=== PATIENT | male | born 1980 | race Hispanic/Latino ===

== ENCOUNTER 2018-07-06 21:31 | Emergency (ER) | payer SELFPAY ==
--- NOTE | 2018-07-06 22:14 | EDPHYS ---
Physician Documentation [facility] Name: Sharif Davila Jr Age: 38 yrs Sex: Male : 1980 Arrival Date: 07/06/2018 Time: 21:32 Bed 23 Private MD: ED Physician Maciel Edwards HPI: 07/06 22:38 This 38 yrs old Male presents to ER via Ambulatory with complaints of Back snw Pain. 22:38 The patient presents with pain that is acute, with no known mechanism of injury, and snw decreased range of motion, and spasm, stiffness, tightness. The symptoms are located in the low back. Onset: The symptoms/episode began/occurred suddenly, 3 day(s) ago, and became worse and became persistent. Location: bilateral buttocks. Associated signs and symptoms: The patient has no apparent associated signs or symptoms. The problem was sustained from unknown cause. Modifying factors: The patient symptoms are alleviated by remaining still, the patient symptoms are aggravated by sitting, defecating, rising. Severity of symptoms: At their worst the symptoms were moderate, severe. The patient has not experienced similar symptoms in the past. The patient has not recently seen a physician. Historical: - Allergies: 21:42 No Known Allergies; ea - Home Meds: 21:42 None [Active]; ea - PMHx: 21:42 None; ea - PSHx: 21:42 Appendectomy; ea - Immunization history:: Adult Immunizations up to date. - Social history:: Smoking status: Patient uses tobacco products, smokes one-half pack cigarettes per day. - Ebola Screening: : No symptoms or risks identified at this time. ROS: 22:37 Constitutional: Negative for fever, chills, and weight loss, Eyes: Negative for injury, snw pain, redness, and discharge, ENT: Negative for injury, pain, and discharge, Neck: Negative for injury, pain, and swelling, Cardiovascular: Negative for chest pain, palpitations, and edema, Respiratory: Negative for shortness of breath, cough, wheezing, and pleuritic chest pain, Abdomen/GI: Negative for abdominal pain, nausea, vomiting, diarrhea, and constipation, : Negative for injury, bleeding, discharge, and swelling, MS/Extremity: Negative for injury and deformity, Skin: Negative for injury, rash, and discoloration, Neuro: Negative for headache, weakness, numbness, tingling, and seizure. 22:37 Back: Positive for decreased range of motion, pain at rest, pain with movement, radiated pain, of the low back area, radiated pain down bilateral buttock, denies numbness, voiding without diff. Exam: 22:37 Constitutional: This is a well developed, well nourished patient who is awake, alert, snw and in no acute distress. Head/Face: Normocephalic, atraumatic. Eyes: Pupils equal round and reactive to light, extra-ocular motions intact. Lids and lashes normal. Conjunctiva and sclera are non-icteric and not injected. Cornea within normal limits. Periorbital areas with no swelling, redness, or edema. ENT: Nares patent. No nasal discharge, no septal abnormalities noted. Tympanic membranes are normal and external auditory canals are clear. Oropharynx with no redness, swelling, or masses, exudates, or evidence of obstruction, uvula midline. Mucous membranes moist. Neck: Trachea midline, no thyromegaly or masses palpated, and no cervical lymphadenopathy. Supple, full range of motion without nuchal rigidity, or vertebral point tenderness. No Meningismus. Chest/axilla: Normal chest wall appearance and motion. Nontender with no deformity. No lesions are appreciated. Cardiovascular: Regular rate and rhythm with a normal S1 and S2. No gallops, murmurs, or rubs. Normal PMI, no JVD. No pulse deficits. Respiratory: Lungs have equal breath sounds bilaterally, clear to auscultation and percussion. No rales, rhonchi or wheezes noted. No increased work of breathing, no retractions or nasal flaring. Abdomen/GI: Soft, non-tender, with normal bowel sounds. No distension or tympany. No guarding or rebound. No evidence of tenderness throughout. Skin: Warm, dry with normal turgor. Normal color with no rashes, no lesions, and no evidence of cellulitis. MS/ Extremity: Pulses equal, no cyanosis. Neurovascular intact. Full, normal range of motion. Neuro: Awake and alert, GCS 15, oriented to person, place, time, and situation. Cranial nerves II-XII grossly intact. Motor strength 5/5 in all extremities. Sensory grossly intact. Cerebellar exam normal. Normal gait. 22:37 Back: pain, that is moderate, of the lumbar area, ROM is painful, with flexion, normal spinal alignment noted, muscle spasm, is appreciated in the low back area. Vital Signs: 21:38 BP 142 / 87; Pulse 87; Resp 16; Temp 98.4; Pulse Ox 100% ; Weight 64.41 kg; Height 5 ea ft. 9 in. (175.26 cm); Pain 8/10; 22:39 BP 121 / 76; Pulse 68; Resp 18; Pulse Ox 98% on R/A; tl3 21:38 Body Mass Index 20.97 (64.41 kg, 175.26 cm) ea MDM: 22:12 Patient medically screened. snw 22:40 Data reviewed: vital signs, nurses notes. Data interpreted: Pulse oximetry: on room air snw is 98 %. Interpretation: normal. Counseling: I had a detailed discussion with the patient and/or guardian regarding: the historical points, exam findings, and any diagnostic results supporting the discharge/admit diagnosis, lab results, the need for outpatient follow up, to return to the emergency department if symptoms worsen or persist or if there are any questions or concerns that arise at home. Special discussion: Based on the history and exam findings, there is no indication for further emergent testing or inpatient evaluation. I discussed with the patient/guardian the need to see the primary care provider for further evaluation of the symptoms. 07/06 22:31 Order name: Urine Dipstick--Ancillary (enter results) 2 07/06 22:01 Order name: Urine Dipstick-Ancillary (obtain specimen); Complete Time: 22:28 snw Administered Medications: 22:28 Drug: Decadron 8 mg Route: PO; mg2 22:28 Follow up: Response: No adverse reaction; Medication administered at discharge. mg2 22:28 Drug: [place] 5 mg-325 mg 1 tabs Route: PO; mg2 22:28 Follow up: Response: No adverse reaction; Medication administered at discharge. mg2 22:28 Drug: Valium 2 mg Route: PO; mg2 22:28 Follow up: Response: No adverse reaction; Medication administered at discharge. mg2 Disposition: 22:47 Co-signature as Attending Physician, Maciel Edwards MD. ma2 Disposition: 07/06/18 22:13 Discharged to Home. Impression: Low back pain, Radiculopathy, lumbosacral region. - Condition is Stable. - Discharge Instructions: Back Pain, Adult, Lumbosacral Radiculopathy, Musculoskeletal Pain, Back Injury Prevention, [id number]-ru-Femt, Back Exercises, Jypj-zp-Opyk, Cryotherapy, Rehydration, Adult, Heat Therapy. - Prescriptions for Diclofenac Sodium 75 mg Oral Tablet Sustained Release - take 1 tablet by ORAL route 2 times per day; 30 tablet. orphenadrine citrate 100 mg Oral Tablet Sustained Release - take 1 tablet by ORAL route 2 times per day As needed; 20 tablet. - Work release form, Medication Reconciliation Form, Thank You Letter, Antibiotic Education, Prescription Opioid Use form. - Follow up: Private Physician; When: 2 - 3 days; Reason: Recheck today's complaints, Continuance of care, Re-evaluation by your physician. Follow up: Emergency Department; When: As needed; Reason: Worsening of condition. Signatures: Dispatcher [employer] EDMS Jessi Lino, HERMELINDA-C DRAFTING TECHNICIAN-Csnw Rhiannon Salazar, RN RN ea Maciel Edwards MD MD ma2 Nicole Newton RN RN tl3 Bubba Rodriguez RN RN mg2 Corrections: (The following items were deleted from the chart) 22:40 22:13 07/06/2018 22:13 Discharged to Home. Impression: Low back pain; Radiculopathy, tl3 lumbosacral region. Condition is Stable. Forms are Medication Reconciliation Form, Thank You Letter, Antibiotic Education, Prescription Opioid Use. Follow up: Private Physician; When: 2 - 3 days; Reason: Recheck today's complaints, Continuance of care, Re-evaluation by your physician. Follow up: Emergency Department; When: As needed; Reason: Worsening of condition. snw
--- NOTE | 2018-07-06 22:14 | ER ---
Nurse's Notes [facility] Name: Sharif Davila Jr Age: 38 yrs Sex: Male : 1980 Arrival Date: 07/06/2018 Time: 21:32 Bed 23 Private MD: Diagnosis: Low back pain;Radiculopathy, lumbosacral region Presentation: 07/06 21:39 Presenting complaint: Patient states: Patient reports lower back pain that started ea Friday, states he might have pulled some muscles but nothing has helped. Transition of care: patient was not received from another setting of care. Onset of symptoms. Risk Assessment: Do you want to hurt yourself or someone else? Patient reports no desire to harm self or others. Initial Sepsis Screen: Does the patient meet any 2 criteria? No. Patient's initial sepsis screen is negative. Does the patient have a suspected source of infection? No. Patient's initial sepsis screen is negative. Care prior to arrival: None. 21:39 Method Of Arrival: Ambulatory ea 21:39 Acuity: LIZ 4 ea Historical: - Allergies: 21:42 No Known Allergies; ea - Home Meds: 21:42 None [Active]; ea - PMHx: 21:42 None; ea - PSHx: 21:42 Appendectomy; ea - Immunization history:: Adult Immunizations up to date. - Social history:: Smoking status: Patient uses tobacco products, smokes one-half pack cigarettes per day. - Ebola Screening: : No symptoms or risks identified at this time. Screenin:15 Abuse screen: Denies threats or abuse. Denies injuries from another. Nutritional mg2 screening: No deficits noted. Tuberculosis screening: No symptoms or risk factors identified. Fall Risk Gait- Weak (10 pts.). Assessment: 22:15 General: Appears in no apparent distress. uncomfortable, Behavior is calm, cooperative. mg2 Pain: Complains of pain in back Pain does not radiate. Pain currently is 8 out of 10 on a pain scale. Quality of pain is described as aching, Pain began gradually, Is intermittent. Neuro: Level of Consciousness is awake, alert, obeys commands, Oriented to person, place, time, situation. Cardiovascular: Capillary refill < 3 seconds Patient's skin is warm and dry. Respiratory: Airway is patent Respiratory effort is even, unlabored, Respiratory pattern is regular, symmetrical. GI: No signs and/or symptoms were reported involving the gastrointestinal system. : No signs and/or symptoms were reported regarding the genitourinary system. EENT: No signs and/or symptoms were reported regarding the EENT system. Derm: Skin is intact, is healthy with good turgor, Skin is pink, warm \T\ dry. normal. Musculoskeletal: Reports pain in back. 22:18 Reassessment: patient is for discharge after giving all the medications. mg2 Vital Signs: 21:38 BP 142 / 87; Pulse 87; Resp 16; Temp 98.4; Pulse Ox 100% ; Weight 64.41 kg; Height 5 ea ft. 9 in. (175.26 cm); Pain 8/10; 22:39 BP 121 / 76; Pulse 68; Resp 18; Pulse Ox 98% on R/A; tl3 21:38 Body Mass Index 20.97 (64.41 kg, 175.26 cm) ea ED Course: 21:32 Patient arrived in ED. am2 21:36 Jessi Lino FNP-C is PHCP. snw 21:36 Maciel Edwards MD is Attending Physician. snw 21:41 Triage completed. ea 22:12 Bubba Rodriguez, TY is Primary Nurse. mg2 22:14 Patient has correct armband on for positive identification. mg2 22:15 No provider procedures requiring assistance completed. mg2 22:17 Door closed. mg2 22:17 Arm band placed on. mg2 22:39 Patient did not have IV access during this emergency room visit. tl3 Administered Medications: 22:28 Drug: Decadron 8 mg Route: PO; mg2 22:28 Follow up: Response: No adverse reaction; Medication administered at discharge. mg2 22:28 Drug: [place] 5 mg-325 mg 1 tabs Route: PO; mg2 22:28 Follow up: Response: No adverse reaction; Medication administered at discharge. mg2 22:28 Drug: Valium 2 mg Route: PO; mg2 22:28 Follow up: Response: No adverse reaction; Medication administered at discharge. mg2 Outcome: 22:13 Discharge ordered by . snw 22:39 Discharged to home via wheelchair. tl3 22:39 Condition: stable 22:39 Discharge instructions given to patient, Instructed on discharge instructions, follow up and referral plans. medication usage, Demonstrated understanding of instructions, follow-up care, medications, Prescriptions given X 2. 22:40 Patient left the ED. tl3 Signatures: Jessi Lino, GUM SCORING MACHINE OPERATOR-C GUM SCORING MACHINE OPERATOR-Csnw Angle Lam Elena, RN RN Nicole Taylor RN RN tl3 Bubba Rodriguez RN RN mg2
[2018-07-06] MEDS ORDERED: HYDROCODONE/APAP 5/325 MG TAB ONE (22:33)
[2018-07-06] MEDS ORDERED: DIAZEPAM 2 MG TABLET ONE (22:33)
[2018-07-06] MEDS ORDERED: DEXAMETHASONE 4 MG TAB ONE (22:33)
[2018-07-06 23:06] LABS: Urine Blood TRACE (NEG); Urine Glucose NEGATIVE (NEG); Urine Protein NEGATIVE (NEG); Urine Specific Gravity 1.015 (1.005-1.030); Urine pH 7.5 (5.0-7.0)
== END 2018-07-06 22:40 | disposition home or self-care (01) ==
LOC: ER 21:31
DX: M54.17 Radiculopathy, lumbosacral region (principal); F17.210 Nicotine dependence, cigarettes, uncomplicated
CPT/HCPCS: 81003; 99283

== ENCOUNTER 2018-07-14 14:36 | Emergency (ER) | payer SELFPAY ==
[2018-07-14] MEDS ORDERED: LIDOCAINE 1% MPF 5 ML VIAL ONE (15:29)
[2018-07-14] MEDS ORDERED: NA CHLORIDE 0.9% 100 ML IV ONE ×3 (16:10→16:31)
[2018-07-14] MEDS ORDERED: CEFAZOLIN SODIUM 1 GM/VIAL ONE ×2 (16:16→16:30)
[2018-07-14] MEDS ORDERED: TETANUS & DIPHTHERIA TOX,ADULT 0.5 ML VIAL ONE (16:18)
--- NOTE | 2018-07-14 16:30 | RAD REPORT ---
EXAM DESCRIPTION: RAD -Hand Left 3 View - 07/14/2018 3:44 pm CLINICAL HISTORY: Left hand pain status post injury FINDINGS: Nondisplaced fracture involves the mid to distal aspect of the first proximal phalanx. The fracture line has a horizontal as well as a vertical component. No dislocation is seen
[2018-07-14] MEDS ORDERED: NA CHLORIDE 0.9% 1,000 ML ONE (16:31)
--- NOTE | 2018-07-14 16:39 | ER ---
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 Transition of care: patient was not received from another setting of care. Onset of symptoms was July 14, 2018 at 14:20. Risk Assessment: Do you want to hurt yourself or someone else? Patient reports no desire to harm self or others. Initial Sepsis Screen: Does the patient meet any 2 criteria? No. Patient's initial sepsis screen is negative. Does the patient have a suspected source of infection? No. Patient's initial sepsis screen is negative. Care prior to arrival: None. 14:52 Method Of Arrival: Ambulatory 14:52 Acuity: LIZ 4 Triage Assessment: 14:53 General: Appears in no apparent distress. comfortable, Behavior is calm, cooperative, ch appropriate for age. Pain: Complains of pain in dorsal aspect of distal phalanx of left thumb and dorsal aspect of proximal phalanx of left thumb. Musculoskeletal: Circulation, motion, and sensation intact. Capillary refill < 3 seconds, in bilateral fingers. toes. Injury Description: Crush injury sustained to left hand is pt has laceration. Historical: - Allergies: 14:53 No Known Allergies; - Home Meds: 14:53 back pain medication given 06/2018 [Active]; - PMHx: 14:53 None; - PSHx: 14:53 fingers; Appendectomy; - Immunization history:: Adult Immunizations up to date, Last tetanus immunization: up to date. - Social history:: Smoking status: Patient uses tobacco products, smokes one-half pack cigarettes per day, Patient uses alcohol, weekly. Patient/guardian denies using street drugs. - Ebola Screening: : Patient negative for fever greater than or equal to 101.5 degrees Fahrenheit, and additional compatible Ebola Virus Disease symptoms Patient denies exposure to infectious person Patient denies travel to an Ebola-affected area in the 21 days before illness onset No symptoms or risks identified at this time. Screenin:34 Abuse screen: Denies threats or abuse. Nutritional screening: No deficits noted. ls4 Tuberculosis screening: No symptoms or risk factors identified. Fall Risk None identified. Assessment: 16:33 General: Appears in no apparent distress. Neuro: No deficits noted. Cardiovascular: No ls4 deficits noted. Respiratory: No deficits noted. Musculoskeletal: Circulation, motion, and sensation intact. Capillary refill < 3 seconds, Range of motion: intact in all extremities. Injury Description: Laceration sustained to dorsal aspect of proximal phalanx of left thumb is clean, full thickness, 7.6 to 20 cm long, was sustained 1-2 hours ago. a small amount of bleeding noted at this time. Vital Signs: 14:53 BP 139 / 90; Pulse 73; Resp 16; Temp 98.6; Pulse Ox 99% on R/A; Weight 65.77 kg; Height ch 5 ft. 9 in. (175.26 cm); Pain 6/10; 14:53 Body Mass Index 21.41 (65.77 kg, 175.26 cm) ED Course: 14:36 Patient arrived in ED. as 14:52 Triage completed. ch 14:53 Arm band placed on left wrist. Patient placed in waiting room. ch 15:00 Cinthia Perez, TY is Primary Nurse. ls4 15:07 Denise Nagy PA is PHCP. cp 15:07 Prasanna Kurtz MD is Attending Physician. cp 15:07 Elliot Perkins MD is Attending Physician. cp 15:45 XRAY Hand LEFT 3 View In Process Unspecified. EDMS 16:32 Assist provider with laceration repair on dorsal aspect of proximal phalanx of left ls4 thumb and dorsal aspect of distal phalanx of left thumb that was between 7.6 to 12.5 cm using sutures. Set up tray. Performed by Denise KUMAR Dressed with Patient tolerated well. 16:34 Bed in low position. Call light in reach. Side rails up X 1. ls4 16:38 Can Yu MD is Referral Physician. cp 17:11 Wound care: to laceration was dressed with Neosporin, Kerlix, sugartong, oni wraps. pt ls4 tolerated well . 17:12 IV discontinued, intact, bleeding controlled, No redness/swelling at site. ls4 Administered Medications: 16:30 Drug: Ancef 1 grams Route: IVPB; Site: right hand; ls4 17:00 Follow up: IV Status: Completed infusion; IV Intake: 100ml ls4 16:31 Drug: Tetanus-Diphtheria Toxoid Adult 0.5 ml {Licensed Nurse Practitioner: [employer]. Exp: ls4 11/12/2018. Lot #: [id number]. } {Note: YANG [id number],.} Route: IM; Site: right deltoid; 17:13 Follow up: Response: No adverse reaction ls4 16:35 Drug: Lidocaine (1 %) 5 ml {Note: BY DENISE KUMAR.} Volume: 20 ml; Route: Infiltration;ls4 Intake: 17:00 IV: 100ml; Total: 100ml. ls4 Outcome: 16:39 Discharge ordered by . rosalia 17:12 Patient left the ED. Amanda 17:12 Discharged to home ambulatory, with family. ls4 17:12 Condition: good 17:12 Discharge instructions given to patient, Instructed on discharge instructions, follow up and referral plans. medication usage, safety practices, Demonstrated understanding of instructions, follow-up care, medications, wound care, Prescriptions given X 2. Signatures: Dispatcher [employer] EDMS Comfort Parsons RN RN Elis Pablo Corey, PA PA cp Martinez, [facility] Cinthia Perez RN RN ls4 Corrections: (The following items were deleted from the chart) 16:34 16:33 Injury Description: Laceration sustained to dorsal aspect of proximal phalanx of ls4 left thumb is clean, full thickness, 2.6 to 7.5 cm long, was sustained 1-2 hours ago. a small amount of bleeding noted at this time. ls4
--- NOTE | 2018-07-14 16:39 | EDPHYS ---
Physician Documentation [facility] Name: Sharif Davila Jr Age: 38 yrs Sex: Male : 1980 Arrival Date: 07/14/2018 Time: 14:36 Bed Treatment Private MD: ED Physician Elliot Perkins HPI: 07/14 15:15 This 38 yrs old Male presents to ER via Ambulatory with complaints of Finger cp Injury. 15:15 The patient or guardian reports injury, a laceration. The complaints affect the dorsal cp aspect of proximal phalanx of left thumb. Context: The problem was sustained at work, resulted from a crush injury. Onset: The symptoms/episode began/occurred just prior to arrival. Associated signs and symptoms: Pertinent negatives: cyanosis distally, numbness distally. Historical: - Allergies: 14:53 No Known Allergies; ch - Home Meds: 14:53 back pain medication given 06/2018 [Active]; ch - PMHx: 14:53 None; ch - PSHx: 14:53 fingers; Appendectomy; ch - Immunization history:: Adult Immunizations up to date, Last tetanus immunization: up to date. - Social history:: Smoking status: Patient uses tobacco products, smokes one-half pack cigarettes per day, Patient uses alcohol, weekly. Patient/guardian denies using street drugs. - Ebola Screening: : Patient negative for fever greater than or equal to 101.5 degrees Fahrenheit, and additional compatible Ebola Virus Disease symptoms Patient denies exposure to infectious person Patient denies travel to an Ebola-affected area in the 21 days before illness onset No symptoms or risks identified at this time. ROS: 15:20 Constitutional: Negative for body aches, chills, fever, poor PO intake. cp 15:20 Eyes: Negative for injury, pain, redness, and discharge. cp 15:20 ENT: Negative for drainage from ear(s), ear pain, sore throat, difficulty swallowing, difficulty handling secretions. 15:20 Cardiovascular: Negative for chest pain. 15:20 Respiratory: Negative for cough, wheezing. 15:20 Abdomen/GI: Negative for abdominal pain, vomiting, diarrhea, constipation. 15:20 MS/extremity: Positive for laceration, pain, tenderness, of the dorsal aspect of proximal phalanx of left thumb, Negative for decreased range of motion. 15:20 Neuro: Negative for numbness. 15:20 All other systems are negative. Exam: 15:30 Constitutional: The patient appears in no acute distress, alert, awake, non-toxic, well cp developed, well nourished. 15:30 Head/Face: Normocephalic, atraumatic. cp 15:30 Eyes: Periorbital structures: appear normal, Conjunctiva: normal, no exudate, no injection, Lids and lashes: appear normal, bilaterally. 15:30 ENT: External ear(s): are unremarkable, Nose: is normal, Mouth: Lips: moist, Oral mucosa: moist, Posterior pharynx: Airway: no evidence of obstruction, patent. 15:30 Chest/axilla: Inspection: normal. 15:30 Cardiovascular: Rate: normal, Rhythm: regular. 15:30 Respiratory: the patient does not display signs of respiratory distress, Respirations: normal, no use of accessory muscles, no retractions, no splinting, no tachypnea. 15:30 Abdomen/GI: Exam negative for discomfort, distension, guarding, Inspection: abdomen appears normal. 15:30 Back: pain, is absent, ROM is normal. 15:30 Musculoskeletal/extremity: Extremities: grossly normal except: noted in the dorsal aspect of proximal phalanx of left thumb: laceration, There is no evidence of decreased ROM, Perfusion: the extremity is normally perfused throughout, Sensation intact. Tendon exam: specific tendon testing normal through active and passive range of motion Vital Signs: 14:53 BP 139 / 90; Pulse 73; Resp 16; Temp 98.6; Pulse Ox 99% on R/A; Weight 65.77 kg; Height ch 5 ft. 9 in. (175.26 cm); Pain 6/10; 14:53 Body Mass Index 21.41 (65.77 kg, 175.26 cm) ch Laceration: 16:26 Wound Repair of 2cm ( 0.8in ) subcutaneous laceration to dorsal side proximal phalanx cp left thumb. Linear shaped.. Distal neuro/vascular/tendon intact. Anesthesia: Wound infiltrated with 3 mls of 1% lidocaine. Wound prep: Extensive cleansing by me, Wound irrigation by me. Skin closed with 4 4-0 Prolene using interrupted sutures and sterile technique. Dressed with Bacitracin, tube gauze, finger splint. Patient tolerated well. MDM: 15:08 Patient medically screened. cp 15:52 Physician consultation: Can Yu MD was called at 15:52, was contacted at 15:52, regarding patient's condition, and will see patient in office, tomorrow, wants laceration irrigated, closed, splinted and patient placed on oral antibiotics. Will see patient in office tomorrow for reevaluation. 16:38 Data reviewed: vital signs, nurses notes, radiologic studies, plain films, I have cp discussed the patient's presentation/case with the attending Emergency Department Physician; and as a result, I will discharge patient. 16:38 Differential diagnosis: dislocation, open fracture, closed fracture, contusion. Test cp interpretation: by ED physician or midlevel provider: plain radiologic studies. 07/14 14:55 Order name: XRAY Hand LEFT 3 View; Complete Time: 16:37 ch 07/14 15:12 Order name: Wound Care: please clean and irrigate wound; Complete Time: 15:13 cp 07/14 15:12 Order name: Dressing - Wound; Complete Time: 15:22 cp 07/14 15:12 Order name: Gloves, Sterile; Complete Time: 15:22 cp 07/14 15:12 Order name: Setup Suture Tray; Complete Time: 15:22 cp 07/14 15:50 Order name: IV; Complete Time: 16:32 cp Administered Medications: 16:30 Drug: Ancef 1 grams Route: IVPB; Site: right hand; ls4 17:00 Follow up: IV Status: Completed infusion; IV Intake: 100ml ls4 16:31 Drug: Tetanus-Diphtheria Toxoid Adult 0.5 ml {He[employer] Helper: [employer]. Exp: ls4 11/12/2018. Lot #: [id number]. } {Note: YANG [id number],.} Route: IM; Site: right deltoid; 17:13 Follow up: Response: No adverse reaction ls4 16:35 Drug: Lidocaine (1 %) 5 ml {Note: BY DENISE KUMAR.} Volume: 20 ml; Route: Infiltration;ls4 Disposition: 18:05 Co-signature as Attending Physician, Elliot Perkins MD. rn Disposition: 07/14/18 16:39 Discharged to Home. Impression: Nondisplaced fracture of proximal phalanx of left thumb - open. - Condition is Stable. - Discharge Instructions: Sutured Wound Care, Thumb Fracture. - Prescriptions for Keflex 500 mg Oral Capsule - take 1 capsule by ORAL route every 6 hours for 10 days; 40 capsule. Tylenol- Codeine #3 300-30 mg Oral Tablet - take 2 tablets by ORAL route every 6 hours As needed; 20 tablet. - Medication Reconciliation Form, Thank You Letter, Antibiotic Education, Prescription Opioid Use form. - Follow up: Can Yu MD; When: Tomorrow; Reason: Wound Recheck. - Problem is new. - Symptoms have improved. Signatures: Dispatcher [employer] EDMS Comfort Parsons RN RN Elliot Marquis MD MD rn Page, Corey, PA PA cp Martinez, Maria 5 Cinthia Perez RN RN ls4 Corrections: (The following items were deleted from the chart) 16:39 16:39 07/14/2018 16:39 Discharged to Home. Impression: Nondisplaced fracture of cp proximal phalanx of left thumb. Condition is Stable. Forms are Medication Reconciliation Form, Thank You Letter, Antibiotic Education, Prescription Opioid Use. Follow up: Can Yu; When: Tomorrow; Reason: Wound Recheck. Problem is new. Symptoms have improved. cp 17:12 16:39 07/14/2018 16:39 Discharged to Home. Impression: Nondisplaced fracture of mh5 proximal phalanx of left thumb - open. Condition is Stable. Forms are Medication Reconciliation Form, Thank You Letter, Antibiotic Education, Prescription Opioid Use. Follow up: Can Yu; When: Tomorrow; Reason: Wound Recheck. Problem is new. Symptoms have improved. cp
== END 2018-07-14 17:12 | disposition home or self-care (01) ==
LOC: ER 14:36
PROC: 0JQK0ZZ Repair Left Hand Subcutaneous Tissue and Fascia, Open Approach (ICD-10-PCS; principal; 2018-07-14)
DX: S62.515B Nondisplaced fracture of proximal phalanx of left thumb, initial encounter for open fracture (principal); X58.XXXA Exposure to other specified factors, initial encounter; Y93.9 Activity, unspecified; Y92.89 Other specified places as the place of occurrence of the external cause; Y99.8 Other external cause status; Z23 Encounter for immunization; F17.210 Nicotine dependence, cigarettes, uncomplicated
CPT/HCPCS: 90714; 96365; 99284; J0690; J7030